=== PATIENT | female | born 1985 | race Asian ===

== ENCOUNTER → 2018-06-01 | Outpatient (CLI) | payer OTHER ==
[2018-06-01 12:32] LABS: BASOPHIL % 0.5 % (0-2); PLATELET COUNT 255 x10^3mcL (130-400); RED CELL DISTRIBUTION WIDTH 13.4 % (11.5-14.5)
[2018-06-02 11:17] LABS: RAPID PLASMA REAGIN Non Reactive (Non Reactive)
== END | disposition home or self-care (01) ==
LOC: LB 10:59
DX: Z33.1 Pregnant state, incidental (principal); Z22.8 Carrier of other infectious diseases
CPT/HCPCS: 87491; 87591

== ENCOUNTER → 2018-09-28 | Outpatient (CLI) | payer OTHER ==
[2018-09-28 11:07] LABS: BASOPHIL % 0.4 % (0-2); PLATELET COUNT 217 x10^3mcL (130-400); RED CELL DISTRIBUTION WIDTH 13.7 % (11.5-14.5)
== END | disposition home or self-care (01) ==
LOC: LB 09:39
DX: D50.9 Iron deficiency anemia, unspecified (principal); R73.09 Other abnormal glucose

== ENCOUNTER 2018-11-01 13:02 | Emergency (ER) | payer OTHER ==
[~2018-11-01] VITALS: Ht 165.1 cm; Wt 81.6 kg
[2018-11-01 13:09] VITALS: Ht 165.1 cm; Wt 81.6 kg
[2018-11-01 14:05] VITALS: BP 132/83
== END 2018-11-01 14:05 | disposition home or self-care (01) ==
LOC: ED 13:02
DX: S61.231A Puncture wound without foreign body of left index finger without damage to nail, initial encounter (principal); W46.0XXA Contact with hypodermic needle, initial encounter; Y93.89 Activity, other specified; Y92.89 Other specified places as the place of occurrence of the external cause; Y99.8 Other external cause status

== ENCOUNTER → 2018-11-26 | Outpatient (CLI) | payer OTHER | END | disposition home or self-care (01) | LOC: LB 13:35 | DX: Z36.9 Encounter for antenatal screening, unspecified (principal) ==